=== PATIENT | female | born 1980 | race Caucasian/White ===

== ENCOUNTER 2017-04-14 22:32 | Emergency (ER) | payer OTHER ==
[~2017-04-14] VITALS: Ht 170.2 cm; Wt 73.3 kg
[2017-04-14 22:34] VITALS: BP 134/91
== END 2017-04-14 23:18 | disposition left against medical advice (07) ==
LOC: ED 23:12
DX: R51 Headache (principal); R20.2 Paresthesia of skin
CPT/HCPCS: 99281

== ENCOUNTER 2020-07-21 22:00 | Emergency (ER) | payer MEDICAID ==
[~2020-07-21] VITALS: Ht 170.2 cm; Wt 82.4 kg
--- NOTE | 2020-07-21 22:26 | NUR ---
patient arrives with daughter, both positive for covid. she was tested yesteday. had one pfeizer vaccine 4/ and not second dose. arrives feeling sob,
[2020-07-21] MEDS ORDERED: ALBU0.63 NEB (22:32)
--- NOTE | 2020-07-21 23:50 | NUR ---
patient discharge reviewed including all details. patient was on phone and mostly concerned with her in another room. Gave patient a copy of her discharge paperwork and asked if any questions. She seems very angry, no questions. Pulled curtain and let patient take her time getting dressed, waited in across the [place] room charting for her to get dressed and gather her things. Then she pulled curtain and began darting wrong way with mask under her chin. Met her in [place] and said as nicely as possible that I really need her to go directly to discharge area and meet her family outside, that she has a contagious virus. She began screaming at me, "do you have children? I'm not leaving here until I go get my family and you can (swear word) off". I called security to help me. I calmly tried to explain that it's only because of her covid that we do need her to wait and meet them outside but that they were also beind discharged; she didn't listen to me and was yelling at me and security.
--- NOTE | 2020-07-22 | NUR ---
patient throughout stay had covid + daughter in and out of room going to see her dad also C19 positive in other room. Told them multiple times that daughter, 11 years old, cant leave the isolation room. let battery charger know as well. when discharged patient, patient then was combative and demanding to go find her daughter/. let her know with c19 she can't not roam around our ER that she has a highly infectious virus and will need to leave and meet them outside of the ER; they have phones and /daughter being simultaneiously discharged. She began screaming as to weather I have children, and how she can't wait to complain. called security to help for patient safety of other patients in hospital to escort her out.
[2020-07-22 00:03] VITALS: BP 118/89
== END 2020-07-22 00:05 | disposition home or self-care (01) ==
LOC: ED 23:10
DX: R05 Cough (principal); F17.200 Nicotine dependence, unspecified, uncomplicated
CPT/HCPCS: 71045; 93005; 99283